=== PATIENT | female | born 1995 | race Caucasian/White ===

== ENCOUNTER 2020-12-11 20:41 | Emergency (ER) | payer MEDICAID ==
--- NOTE | 2020-12-12 11:09 | ER ---
DATE SEEN: 12/11/2020 REASON FOR VISIT: testing. HISTORY OF PRESENT ILLNESS: A 25-year-old female who would like a test. Last period was November 12. She has no symptoms. MEDICATIONS: Reviewed. PHYSICAL EXAMINATION: VITAL SIGNS: Afebrile. Normal vital signs. MENTAL STATUS: Alert. LABORATORY DATA: Urine was negative for . IMPRESSION: Encounter for testing. PLAN: Reassurance, may repeat the test in a week. /[id number] [place]/MODL
== END 2020-12-11 22:53 | disposition home or self-care (01) ==
LOC: FB.ED 20:41
DX: Z32.02 Encounter for pregnancy test, result negative (principal)
CPT/HCPCS: 81025; 99282

== ENCOUNTER 2021-10-22 10:56 | Emergency (ER) | payer MEDICAID ==
[2021-10-22] MEDS ORDERED: Sodium Chloride 0.9% 1,000 ML IV ONE (11:14)
[2021-10-22] MEDS ORDERED: Sodium Chloride 0.9% 10 ML Syringe FLUSH PRN (11:15)
== END 2021-10-22 13:03 | disposition home or self-care (01) ==
LOC: FB.ED 10:56
DX: H81.10 Benign paroxysmal vertigo, unspecified ear (principal); Z88.8 Allergy status to other drugs, medicaments and biological substances
CPT/HCPCS: 36415; 80048; 81001; 85025; 93005; 99282; 99284-25; J7030